=== PATIENT | female | born 1950 | race African-American/Black ===

== ENCOUNTER 2022-10-13 16:14 | Emergency (ER) | payer BC ==
[~2022-10-13] VITALS: Ht 165.1 cm; Wt 80.0 kg
[2022-10-13 16:29] VITALS: BP 125/85
[2022-10-13] MEDS ORDERED: TRAM-529 MT (20:36)
== END 2022-10-13 21:07 | disposition home or self-care (01) ==
LOC: ER 16:14
DX: S80.02XA Contusion of left knee, initial encounter (principal); W50.2XXA Accidental twist by another person, initial encounter; Y93.89 Activity, other specified; Y92.89 Other specified places as the place of occurrence of the external cause; Y99.8 Other external cause status
CPT/HCPCS: 93971; 99284